=== PATIENT | female | born 1990 | race Caucasian/White ===

== ENCOUNTER 2016-09-15 16:18 | Emergency (ER) | payer MEDICAID ==
[~2016-09-15 16:18] MED LIST: NORCO 325 MG-51 TAB; NORCO 325 MG-51 TAB PO; PROGESTERONE200 M1; RELPAX20 MG; WELLBUTRIN
[2016-09-15] MEDS ORDERED: PROAIR HFA0.09 MG/AC IH (16:28)
[2016-09-15] MEDS ORDERED: PULMICORT180 MCG/Ac IH (16:28)
[2016-09-15 16:55] VITALS: BP 105/65
== END 2016-09-15 16:57 | disposition home or self-care (01) ==
LOC: ED 16:18
DX: T81.30XA Disruption of wound, unspecified, initial encounter (principal); Z33.1 Pregnant state, incidental

== ENCOUNTER → 2017-05-07 | Outpatient (CLI) | payer MEDICAID ==
[~2017-05-07] MED LIST changes: +PROAIR HFA0.09 MG/AC IH; +PULMICORT180 MCG/Ac IH
[2017-05-07 12:39] LABS: EOS # 0.1 (0.04-0.40); HEMATOCRIT 43.5 % (37.0-47.0); LYMPH# 2.2 (1.50-4.00); MEAN CELL VOLUME 82 fl (78-100); MEAN CORPUSCULAR HEMOGLOBIN 27 pg (27-31); MEAN CORPUSCULAR HGB CONC 32 g/dL (33-37); MEAN PLATELET VOLUME 11.9 fl (7.4-10.4); MONO # 0.4 (0.20-0.80); NEU # 4.2 (1.40-6.50); PLATELET COUNT 231 K/mm3 (130-400); RED BLOOD COUNT 5.29 M/mm3 (4.10-5.30); RED CELL DISTRIBUTION WIDTH 14.8 % (11.5-14.5)
[2017-05-07 12:49] LABS: BUN/CREATININE RATIO 20.2 (6.0-26.0); CALCIUM 9.7 mg/dL (8.4-10.2); TOTAL BILIRUBIN 0.7 mg/dL (0.2-1.3); TOTAL PROTEIN 7.1 g/dL (6.3-8.2)
== END ==
LOC: LAB 12:03
PROVIDERS: Psychiatry & Neurology Neurology
DX: G43.709 Chronic migraine without aura, not intractable, without status migrainosus (principal)

== ENCOUNTER 2020-12-20 17:40 | Emergency (ER) | payer MEDICAID ==
[~2020-12-20] VITALS: Wt 62.7 kg
[2020-12-20] MEDS ORDERED: BREO ELLIPTA 21 EACH IH (18:49)
[2020-12-20] MEDS ORDERED: RT ALBUTEROL CC18 GM IH (18:49)
[2020-12-20] MEDS ORDERED: SPIRIVA RESPIMAT4 GM IH (18:50)
[2020-12-20 19:32] VITALS: BP 120/84
== END 2020-12-20 19:22 | disposition left against medical advice (07) ==
LOC: ED 17:40
DX: R39.12 Poor urinary stream (principal); R10.30 Lower abdominal pain, unspecified